=== PATIENT | male | born 1940 | race Two or more races ===

== ENCOUNTER 2021-06-27 16:45 | Inpatient (IN) | payer MEDICARE ==
[~2021-06-27] VITALS: Ht 165.1 cm; Wt 72.7 kg
--- NOTE | 2021-06-27 17:05 | PHYS DOC ---
General Adult EDM: Chief Complaint: HYPERTENSION HPI: HPI: Patient is an 81-year-old male who presents to the emergency department for hypertension and hypoglycemia. Per EMS, patient went to dialysis today, and he receives dialysis Thursday and Thursday. He was returning home to [facility] and had difficulty getting out of the vehicle, his blood sugar was checked at the facility and it was 37, they administered D10 and oral glucose and they rechecked his blood sugar was 107. EMS was contacted for transport. Patient's blood pressure upon ER arrival was 213/96. Patient has a history of hypertension and renal failure. He denies chest pain, abdominal pain, nausea, vomiting fevers, or shortness of breath. Review of Systems: Review of Systems: Constitutional: See HPI Respiratory: See HPI Cardiovascular: See HPI GI: See HPI Heart Score: C/O Chest Pain: No Risk Factors: Risk Factors: DM, Current or recent (<one month) smoker, HTN, HLP, family history of CAD, obesity. Risk Scores: Score 0 - 3: 2.5% MACE over next 6 weeks - Discharge Home Score 4 - 6: 20.3% MACE over next 6 weeks - Admit for Clinical Observation Score 7 - 10: 72.7% MACE over next 6 weeks - Early Invasive Strategies Allergies: Allergies: Allergies Coded Allergies Type Severity Reaction Last Updated Verified No Known Drug Allergies 06/27/21 No Physical Exam: PE: Constitutional: Well developed, well nourished, no acute distress, non-toxic appearance. [] HENT: Normocephalic, atraumatic, bilateral external ears normal, oropharynx moist, no oral exudates, nose normal. [] Eyes: PERRL, EOMI, conjunctiva normal, no discharge. [] Neck: Normal range of motion, no stridor Cardiovascular:Heart rate regular rhythm, no murmur [] Lungs & Thorax: Bilateral breath sounds clear to auscultation [] Abdomen: Bowel sounds normal, soft, no tenderness, no masses, no pulsatile masses. [] Skin: Warm, dry, no erythema, no rash, fistula noted to left forearm, thrill palpated, bruit auscultated. [] Back: Normal range of motion Extremities: No tenderness, no cyanosis, no clubbing, ROM intact, no edema. [] Neurologic: Alert and oriented X 3, normal motor function, normal sensory function, no focal deficits noted. [] Psychologic: Affect normal, judgement normal, mood normal. [] Current Patient Data: Labs: Laboratory Tests Test 06/27/21 16:57 Glucose (Fingerstick) 81 mg/dL (70-99) Laboratory Tests Test 06/27/21 16:57 06/27/21 18:05 06/27/21 18:30 06/27/21 18:45 Glucose (Fingerstick) 81 mg/dL Sodium Level 135 mmol/L Potassium Level 5.1 mmol/L Chloride Level 101 mmol/L Carbon Dioxide Level 28 mmol/L Anion Gap 6 Blood Urea Nitrogen 34 mg/dL Creatinine 3.9 mg/dL Estimated GFR (Cockcroft-Gault) 14.9 BUN/Creatinine Ratio 9 Glucose Level 87 mg/dL Calcium Level 7.8 mg/dL Total Bilirubin 0.3 mg/dL Aspartate Amino Transf (AST/SGOT) 26 U/L Alanine Aminotransferase (ALT/SGPT) 31 U/L Alkaline Phosphatase 138 U/L Total Protein 7.4 g/dL Albumin 3.2 g/dL Albumin/Globulin Ratio 0.8 SARS-CoV-2 Antigen (Rapid) Negative White Blood Count 6.0 x10^3/uL Red Blood Count 3.48 x10^6/uL Hemoglobin 11.6 g/dL Hematocrit 34.1 % Mean Corpuscular Volume 98 fL Mean Corpuscular Hemoglobin 33 pg Mean Corpuscular Hemoglobin Concent 34 g/dL Red Cell Distribution Width 14.0 % Platelet Count 140 x10^3/uL Neutrophils (%) (Auto) 82 % Lymphocytes (%) (Auto) 8 % Monocytes (%) (Auto) 8 % Eosinophils (%) (Auto) 1 % Basophils (%) (Auto) 0 % Neutrophils # (Auto) 4.9 x10^3/uL Lymphocytes # (Auto) 0.5 x10^3/uL Monocytes # (Auto) 0.5 x10^3/uL Eosinophils # (Auto) 0.1 x10^3/uL Basophils # (Auto) 0.0 x10^3/uL Troponin I High Sensitivity 19 ng/L Urine Collection Type Unknown Urine Color Yellow Urine Clarity Clear Urine pH 7.5 Urine Specific [place] 1.010 Urine Protein 100 mg/dL Urine Glucose (UA) Negative mg/dL Urine Ketones (Stick) Negative mg/dL Urine Blood Trace Urine Nitrite Negative Urine Bilirubin Negative Urine Urobilinogen Dipstick 0.2 mg/dL Urine Leukocyte Esterase Negative Urine RBC 0 /HPF Urine WBC Occ /HPF Urine Squamous Epithelial Cells Occ /LPF Urine Bacteria Few /HPF EKG: EKG: EKG performed at 1652 by ER staff shows sinus bradycardia with a rate of 55, QTC 444, no STEMI read by Dr. Winn at 1655 [] Radiology/Procedures: Radiology/Procedures: []PROCEDURE: PORTABLE CHEST 1V EXAM: CHEST 1 VIEW History: Chest pain COMPARISON: None available. TECHNIQUE: Single portable radiograph of the chest FINDINGS: The cardiac silhouette is unremarkable. Mild bibasilar lung airspace opacities likely atelectasis or infiltrates. Mild prominent bilateral interstitial lung markings likely chronic interstitial changes. IMPRESSION: Mild bibasilar lung airspace opacities likely atelectasis or infiltrates. Electronically signed by: Grant Schofield MD (06/27/2021 5:23 PM) [id number] DICTATED and SIGNED BY: GRANT SCHOFIELD MD DATE: 06/27/21 [id number] Course & Med Decision Making: Course & Med Decision Making Pertinent Labs and Imaging studies reviewed. (See chart for details) Patient presents to the emergency department today for hypotension hypoglycemia. Patient went to dialysis today. His blood sugar was 37. He was given D10 oral glucose his blood sugar recheck was 107, was 81 in ER. Work-up in the ER consisted of blood work, EKG, chest x-ray. Hypoglycemia protocol ordered patient's blood pressure remains elevated 227/99. however he is asymptomatic and has no complaints. He is BUN and creatinine were elevated which is chronic in nature due to his renal failure. Alk Phos 138. Chest x-ray shows mild bibasilar infiltrates and this will be treated with an antibiotic. CBC unremarkable. I contacted the staffing at [facility] and they reported that patient takes 10 mg of glipizide and 25 mg of metoprolol at the facility. I discussed patient's findings with him and his family member he also discussed admission and treatment plan and they are agreeable. I discussed patient's case with Dr. Cox and he agreed to admit the patient under his services for hypoglycemia. Bridge orders placed at this time 1908. Dragon Disclaimer: Leonidas Disclaimer: This electronic medical record was generated, in whole or in part, using a voice recognition dictation system. Departure Departure Impression: Primary Impression: Hypoglycemia Additional Impressions: Hypertension Qualified Codes: I10 - Essential (primary) hypertension Pneumonia Qualified Codes: J18.9 - Pneumonia, unspecified organism Disposition: HOME / SELF CARE / HOMELESS Admitting Physician: SHAN Condition: STABLE REDD HOLLIS CORRECTIONAL CAPTAIN Jun 27, 2021 17:05
--- NOTE | 2021-06-27 17:25 | RAD ---
EXAM: CHEST 1 VIEW History: Chest pain COMPARISON: None available. TECHNIQUE: Single portable radiograph of the chest FINDINGS: The cardiac silhouette is unremarkable. Mild bibasilar lung airspace opacities likely atel ectasis or infiltrates. Mild prominent bilateral interstitial lung markings likely chronic interstiti al changes. IMPRESSION: Mild bibasilar lung airspace opacities likely atelectasis or infiltrates. Electronically signed by: Grant Schofield MD (06/27/2021 5:23 PM) [id number]
--- NOTE | 2021-06-27 18:11 | EKG ---
[facility] [address] [place] [address] Test Date: 2021-06-27 Test Time: 16:52:24 Pat Name: ADRIANA LIM Department: Room: Gender: M Community Engagement Leader: : 1940 Requested By: REDD HOLLIS Order Number: [id number] Reading MD: Cholo Quintanilla MD Measurements Intervals Soldier Rate: 55 P: VA: QRS: -24 QRSD: 92 T: -12 QT: 462 QTc: 444 Interpretive Statements SR NON-SPECIFIC ST/T CHANGES Electronically Signed On 06-28-2021 13:25:35 VETERINARY TECHNICIAN by Cholo Quintanilla MD
[2021-06-27 18:27] LABS: CALCIUM 7.8 mg/dL (8.5-10.1); CREATININE 3.9 mg/dL (0.7-1.3); GFR 14.9; POTASSIUM 5.1 mmol/L (3.5-5.1)
[2021-06-27 18:33] LABS: ALBUMIN 3.2 g/dL (3.4-5.0); ALBUMIN/GLOBULIN RATIO 0.8 (1.0-1.7); TOTAL BILIRUBIN 0.3 mg/dL (0.2-1.0); TOTAL PROTEIN 7.4 g/dL (6.4-8.2)
[2021-06-27 18:38] LABS: BASO % 0 % (0-3); EOS # 0.1 x10^3/uL (0.0-0.7); EOS % 1 % (0-3); HEMATOCRIT 34.1 % (39.0-53.0); HEMOGLOBIN 11.6 g/dL (13.0-17.5); LYMPH # 0.5 x10^3/uL (1.0-4.8); LYMPH % 8 % (24-48); MEAN CORPUSCULAR HEMOGLOBIN 33 pg (25-35); MEAN CORPUSCULAR HGB CONC 34 g/dL (31-37); MEAN CORPUSCULAR VOLUME 98 fL (79-100); MONO # 0.5 x10^3/uL (0.0-1.1); MONO % 8 % (0-9); NEUT # 4.9 x10^3/uL (1.8-7.7); NEUT % 82 % (31-73); PLATELET COUNT 140 x10^3/uL (140-400); RED BLOOD COUNT 3.48 x10^6/uL (4.30-5.70)
[2021-06-27 18:54] LABS: BILIRUBIN,URINE NEGATIVE (NEG); CLARITY,URINE CLEAR; COLOR,URINE YELLOW; NITRITE,URINE NEGATIVE (NEG); PH,URINE 7.5 (<5.0-8.0); PROTEIN,URINE 100 mg/dL (NEG-TRACE); UROBILINOGEN,URINE 0.2 mg/dL (0.2 mg/dL)
[2021-06-27 18:59] LABS: BACTERIA,URINE FEW /HPF (0-FEW); RBC,URINE 0 /HPF (0-2); WBC,URINE OCC /HPF (0-4)
[2021-06-27] MEDS ORDERED: cefTRIAXone IV Push 1 GM VIAL. IVP ONE (19:15)
[2021-06-27] MEDS ORDERED: DEXTROSE 50% 25 GM / 50ML DISP.SYRIN. IV PRN (19:15)
[2021-06-27] MEDS ORDERED: POTASSIUM CL 20MEQ D5-0.45NACL 1,000 ML IV SCH (19:15)
[2021-06-27] MEDS ORDERED: AZITHRMYCN 500MG IVPB FOR OMNI 250 ML IV ONE (19:15)
--- NOTE | 2021-06-27 19:24 | PDOC1 ---
History and Physical Date of Admission Date of Admission DATE: 06/27/21 TIME: 19:23 Identification/Chief Complaint Chief Complaint Confusion Source Source: Caregiver, Chart review, Patient History of Present Illness History of Present Illness Mr Obregon is an 81yo male with PMHx HTN, ESRD on HD who comes to ED via EMS from [facility] where he was found passed out in a car. EMS noted confusion, glucose of 37 which improved to 107 after D10 and oral glucose. Blood pressure notably was 228/90. Patient is seen accompanied by his niece who notes he just move here from [place] on 06/23/2021 and has established dialysis with [facility] and completed dialysis earlier in the day prior to coming to ED. He denies chest pain, abdominal pain, nausea, vomiting fevers, or shortness of breath. No recent sick contacts, [facility] EKG sinus rate of [address] elevations or T WI QTc 444. Chest radiograph with bibasilar opacities likely atelectasis. Labs with WBC 6, Hb 11.6, platelets 140, NA 135, K5.1, BUN 34, CR 3.9, calcium 7.8, albumin 3.2 alkaline phosphatase 138 high-sensitivity troponin 19 UA with trace blood otherwise bland, rapid COVID-19 negative Historically he and his niece note he has not had a COVID-19 vaccine that they can remember. After D5 infusion patient became a little more alert but is extremely hard of hearing and has poor vision. Niece supplements most of the history Admitted for further care on d5 infusion after glucose of 81 noted. Past Medical History Cardiovascular: HTN Renal/: Chronic renal failure Past Surgical History Past Surgical History: Other (left forearm AV fistula) Family History Family History: High Cholestrol, Hypertension Social History Smoke: No ALCOHOL: none Drugs: None Current Problem List Problem List Problems Medical Problems: (1) Hypertension Status: Acute (2) Hypoglycemia Status: Acute (3) Pneumonia Status: Acute Current Medications Current Medications Current Medications Dextrose (Dextrose 50%-Water Syringe) 12.5 gm PRN Q15MIN PRN IV SEE COMMENTS; Start 06/27/21 at 19:15 Ceftriaxone Sodium (Rocephin) 1 gm 1X ONCE IVP ; Start 06/27/21 at 19:15; Stop 06/27/21 at 19:17; Status DC Azithromycin 250 ml @ 250 mls/hr 1X ONCE IV ; Start 06/27/21 at 19:15; Stop 06/27/21 at 20:14 Potassium Chloride/Dextrose/ Sod Cl 1,000 ml @ 80 mls/hr [id number] IV ; Start 06/27/21 at 19:15; Stop 06/28/21 at 07:44 Allergies Allergies: Coded Allergies: No Known Drug Allergies (Unverified , 06/27/21) ROS General: YES: Fatigue, Malaise; No: Chills, Night Sweats, Appetite, Other PSYCHOLOGICAL ROS: YES: Disorientation, Memory difficulties; No: Anxiety, Behavioral Disorder, Concentration difficultie, Decreased libido, Depression, Hallucinations, Hostility, Irritablity, Mood Swings, Obsessive thoughts, Physical abuse, Sexual abuse, Sleep disturbances, Suicidal ideation, Other Eyes: Yes Blurry vision, Yes Decreased vision; No Double vision, No Dry eyes, No Excessive tearing, No Eye Pain, No Itchy Eyes, No Loss of vision, No Photophobia, No Scotomata, No Uses contacts, No Uses glasses, No Other HEENT: YES: Hearing change; No: Heacaches, Visual Changes, Nasal congestion, Nasal discharge, Oral lesions, Sinus pain, Sore Throat, Epistaxis, Sneezing, Snoring, Tinnitus, Vertigo, Vocal changes, Other ALLERGY AND IMMUNOLOGY: No: Hives, Insect Bite Sensitivity, Itchy/Watery Eyes, Nasal Congestion, Post Nasal Drip, Seasonal Allergies, Other Hematological and Lymphatic: No: Bleeding Problems, Blood Clots, Blood T ransfusions, Brusing, Night Sweats, Pallor, Swollen Lymph Nodes, Other ENDOCRINE: No: Breast Changes, Galactorrhea, Hair Pattern Changes, Hot Flashes, Malaise/lethargy, Mood Swings, Palpitations, Polydipsia/polyuria, Skin Changes, Temperature Intolerance, Unexpected Weight Changes, Other Breast: No New/Changing Breast Lumps, No Nipple changes, No Nipple discharge, No Other Respiratory: No: Cough, Hemoptysis, Orthopnea, Pleuritic Pain, Shortness of breath, SOB with excertion, Sputum Changes, Stridor, Tachypnea, Wheezing, Other Cardiovascular: No Chest Pain, No Palpitations, No Orthopnea, No Paroxysmal Noc. Dyspnea, No Edema, No Lt Headedness, No Other Gastrointestinal: No Nausea, No Vomiting, No Abdominal Pain, No Diarrhea, No Constipation, No Melena, No Hematochezia, No Other Genitourinary: No Dysuria, No Frequency, No Incontinence, No Hematuria, No Retention, No Discharge, No Urgency, No Pain, No Flank Pain, No Other, No , No , No , No , No , No , No Musculoskeletal: No Gait Disturbance, No Joint Pain, No Joint Stiffness, No Joint Swelling, No Muscle Pain, No Muscular Weakness, No Pain In:, No Swelling In:, No Other Neurological: Yes Behavorial Changes, Yes Confusion; No Bowel/Bladder ControlChng, No Dizziness, No Gait Disturbance, No Headaches, No Impaired Coord/balance, No Memory Loss, No Numbness/Tingling, No Seizures, No Speech Problems, No Tremors, No Visual Changes, No Weakness, No Other Skin: No Dry Skin, No Eczema, No Hair Changes, No Lumps, No Mole Changes, No Mottling, No Nail Changes, No Pruritus, No Rash, No Skin Lesion Changes, No Other, No Acne Physical Exam General: Alert, Cooperative, mild distress HEENT: Atraumatic, PERRLA, EOMI, Mucous membr. moist/pink Lungs: Clear to auscultation, Normal air movement Heart: S1S2, RRR, no thrills, no rubs, no gallops, no murmurs Abdomen: Normal bowel sounds, Soft, No tenderness, No hepatosplenomegaly, No masses Extremities: No clubbing, No cyanosis, No edema, Normal pulses, No tenderness/swelling Skin: No rashes, No breakdown, Other (LUE fistula with good bruit in forearm) Neuro: Normal speech, Strength at 5/5 X4 ext, Normal tone, Sensation intact, Cranial nerves 3-12 NL, Reflexes 2+ Psych/Mental Status: Other (Confused) Vitals Vitals Vital Signs Date Time Temp Pulse Resp B/P (MAP) Pulse Ox O2 Delivery O2 Flow Rate FiO2 06/27/21 16:45 96.6 55 20 213/96 (135) 97 Room Air 96.6 Labs Labs Laboratory Tests Test 06/27/21 16:57 06/27/21 18:05 06/27/21 18:30 06/27/21 18:45 Glucose (Fingerstick) 81 mg/dL (70-99) Sodium Level 135 mmol/L (136-145) Potassium Level 5.1 mmol/L (3.5-5.1) Chloride Level 101 mmol/L (98-107) Carbon Dioxide Level 28 mmol/L (21-32) Anion Gap 6 (6-14) Blood Urea Nitrogen 34 mg/dL (8-26) Creatinine 3.9 mg/dL (0.7-1.3) Estimated GFR (Cockcroft-Gault) 14.9 BUN/Creatinine Ratio 9 (6-20) Glucose Level 87 mg/dL (70-99) Calcium Level 7.8 mg/dL (8.5-10.1) Total Bilirubin 0.3 mg/dL (0.2-1.0) Aspartate Amino Transf (AST/SGOT) 26 U/L (15-37) Alanine Aminotransferase (ALT/SGPT) 31 U/L (16-63) Alkaline Phosphatase 138 U/L (46-116) Total Protein 7.4 g/dL (6.4-8.2) Albumin 3.2 g/dL (3.4-5.0) Albumin/Globulin Ratio 0.8 (1.0-1.7) SARS-CoV-2 Antigen (Rapid) Negative (NEGATIVE) White Blood Count 6.0 x10^3/uL (4.0-11.0) Red Blood Count 3.48 x10^6/uL (4.30-5.70) Hemoglobin 11.6 g/dL (13.0-17.5) Hematocrit 34.1 % (39.0-53.0) Mean Corpuscular Volume 98 fL (79-100) Mean Corpuscular Hemoglobin 33 pg (25-35) Mean Corpuscular Hemoglobin Concent 34 g/dL (31-37) Red Cell Distribution Width 14.0 % (11.5-14.5) Platelet Count 140 x10^3/uL (140-400) Neutrophils (%) (Auto) 82 % (31-73) Lymphocytes (%) (Auto) 8 % (24-48) Monocytes (%) (Auto) 8 % (0-9) Eosinophils (%) (Auto) 1 % (0-3) Basophils (%) (Auto) 0 % (0-3) Neutrophils # (Auto) 4.9 x10^3/uL (1.8-7.7) Lymphocytes # (Auto) 0.5 x10^3/uL (1.0-4.8) Monocytes # (Auto) 0.5 x10^3/uL (0.0-1.1) Eosinophils # (Auto) 0.1 x10^3/uL (0.0-0.7) Basophils # (Auto) 0.0 x10^3/uL (0.0-0.2) Troponin I High Sensitivity 19 ng/L (4-75) Urine Collection Type Unknown Urine Color Yellow Urine Clarity Clear Urine pH 7.5 (<5.0-8.0) Urine Specific [place] 1.010 (1.000-1.030) Urine Protein 100 mg/dL (NEG-TRACE) Urine Glucose (UA) Negative mg/dL (NEG) Urine Ketones (Stick) Negative mg/dL (NEG) Urine Blood Trace (NEG) Urine Nitrite Negative (NEG) Urine Bilirubin Negative (NEG) Urine Urobilinogen Dipstick 0.2 mg/dL (0.2 mg/dL) Urine Leukocyte Esterase Negative (NEG) Urine RBC 0 /HPF (0-2) Urine WBC Occ /HPF (0-4) Urine Squamous Epithelial Cells Occ /LPF Urine Bacteria Few /HPF (0-FEW) Laboratory Tests Test 06/27/21 16:57 06/27/21 18:05 06/27/21 18:30 06/27/21 18:45 Glucose (Fingerstick) 81 mg/dL (70-99) Sodium Level 135 mmol/L (136-145) Potassium Level 5.1 mmol/L (3.5-5.1) Chloride Level 101 mmol/L (98-107) Carbon Dioxide Level 28 mmol/L (21-32) Anion Gap 6 (6-14) Blood Urea Nitrogen 34 mg/dL (8-26) Creatinine 3.9 mg/dL (0.7-1.3) Estimated GFR (Cockcroft-Gault) 14.9 BUN/Creatinine Ratio 9 (6-20) Glucose Level 87 mg/dL (70-99) Calcium Level 7.8 mg/dL (8.5-10.1) Total Bilirubin 0.3 mg/dL (0.2-1.0) Aspartate Amino Transf (AST/SGOT) 26 U/L (15-37) Alanine Aminotransferase (ALT/SGPT) 31 U/L (16-63) Alkaline Phosphatase 138 U/L (46-116) Total Protein 7.4 g/dL (6.4-8.2) Albumin 3.2 g/dL (3.4-5.0) Albumin/Globulin Ratio 0.8 (1.0-1.7) SARS-CoV-2 Antigen (Rapid) Negative (NEGATIVE) White Blood Count 6.0 x10^3/uL (4.0-11.0) Red Blood Count 3.48 x10^6/uL (4.30-5.70) Hemoglobin 11.6 g/dL (13.0-17.5) Hematocrit 34.1 % (39.0-53.0) Mean Corpuscular Volume 98 fL (79-100) Mean Corpuscular Hemoglobin 33 pg (25-35) Mean Corpuscular Hemoglobin Concent 34 g/dL (31-37) Red Cell Distribution Width 14.0 % (11.5-14.5) Platelet Count 140 x10^3/uL (140-400) Neutrophils (%) (Auto) 82 % (31-73) Lymphocytes (%) (Auto) 8 % (24-48) Monocytes (%) (Auto) 8 % (0-9) Eosinophils (%) (Auto) 1 % (0-3) Basophils (%) (Auto) 0 % (0-3) Neutrophils # (Auto) 4.9 x10^3/uL (1.8-7.7) Lymphocytes # (Auto) 0.5 x10^3/uL (1.0-4.8) Monocytes # (Auto) 0.5 x10^3/uL (0.0-1.1) Eosinophils # (Auto) 0.1 x10^3/uL (0.0-0.7) Basophils # (Auto) 0.0 x10^3/uL (0.0-0.2) Troponin I High Sensitivity 19 ng/L (4-75) Urine Collection Type Unknown Urine Color Yellow Urine Clarity Clear Urine pH 7.5 (<5.0-8.0) Urine Specific [place] 1.010 (1.000-1.030) Urine Protein 100 mg/dL (NEG-TRACE) Urine Glucose (UA) Negative mg/dL (NEG) Urine Ketones (Stick) Negative mg/dL (NEG) Urine Blood Trace (NEG) Urine Nitrite Negative (NEG) Urine Bilirubin Negative (NEG) Urine Urobilinogen Dipstick 0.2 mg/dL (0.2 mg/dL) Urine Leukocyte Esterase Negative (NEG) Urine RBC 0 /HPF (0-2) Urine WBC Occ /HPF (0-4) Urine Squamous Epithelial Cells Occ /LPF Urine Bacteria Few /HPF (0-FEW) Images Images Chest radiograph: The cardiac silhouette is unremarkable. Mild bibasilar lung airspace opacities likely atelectasis or infiltrates. Mild prominent bilateral interstitial lung markings likely chronic interstitial changes. IMPRESSION: Mild bibasilar lung airspace opacities likely atelectasis or infiltrates. VTE Prophylaxis Ordered VTE Prophylaxis Devices: No VTE Pharmacological Prophylaxi: Yes Assessment/Plan Assessment/Plan A/P: Acute encephalopathy - metabolic due to hypoglycemia. No focal neurologic deficits. Will monitor mental status as it continues to improve Hypoglycemia - patient and niece do not note h/o diabetes. WIll maintain D5 infusion, check glucose q4hrs HTN urgency - IV hydralazine ordered. 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
[2021-06-27] MEDS: IV DEXTROSE 5 %-0.45 % NACL 1,000 ML IV ONE ×2 (20:15→23:17)
[2021-06-27] MEDS ORDERED: ONDANSETRON PF 4 MG/2 ML VIAL. IVP PRN (22:15)
[2021-06-27] MEDS ORDERED: traMADol 50 MG TABLET PO PRN (22:15)
[2021-06-27] MEDS ORDERED: NITROGLYCERIN SUBLINGUAL 0.4 MG BOTTLE OF 25. SL PRN (22:15)
[2021-06-27] MEDS ORDERED: ACETAMINOPHEN 325 MG TABLET. PO PRN (22:15)
[2021-06-27] MEDS: fentaNYL PF VIAL 100 MCG/2 ML VIAL IVP PRN (22:56)
[2021-06-27] MEDS: hydrALAZINE 20 MG/ML VIAL. IVP PRN (22:57)
[2021-06-27 23:00] VITALS: BP 133/116
[2021-06-28] MEDS ORDERED: CYCLOBENZAPRINE 10 MG TABLET. PO PRN (00:30)
[2021-06-28] MEDS ORDERED: IV DEXTROSE 10% 500 ML IV ONE (00:30)
[2021-06-28] MEDS ORDERED: fentaNYL PF VIAL 100 MCG/2 ML VIAL IM ONE (00:30)
[2021-06-28] MEDS: hydrALAZINE 20 MG/ML VIAL. IVP PRN ×3 (03:22→22:00)
[2021-06-28] MEDS: fentaNYL PF VIAL 100 MCG/2 ML VIAL IVP PRN (03:22)
[2021-06-28 03:29] VITALS: BP 187/75
[2021-06-28 04:31] LABS: BASO % 0 % (0-3); EOS # 0.1 x10^3/uL (0.0-0.7); EOS % 2 % (0-3); HEMATOCRIT 33.6 % (39.0-53.0); HEMOGLOBIN 11.5 g/dL (13.0-17.5); LYMPH # 0.8 x10^3/uL (1.0-4.8); LYMPH % 18 % (24-48); MEAN CORPUSCULAR HEMOGLOBIN 34 pg (25-35); MEAN CORPUSCULAR HGB CONC 34 g/dL (31-37); MEAN CORPUSCULAR VOLUME 98 fL (79-100); MONO # 0.4 x10^3/uL (0.0-1.1); MONO % 10 % (0-9); NEUT # 3.3 x10^3/uL (1.8-7.7); NEUT % 71 % (31-73); PLATELET COUNT 141 x10^3/uL (140-400); RED BLOOD COUNT 3.43 x10^6/uL (4.30-5.70); WHITE BLOOD COUNT 4.7 x10^3/uL (4.0-11.0)
[2021-06-28 04:57] LABS: ALBUMIN 2.8 g/dL (3.4-5.0); ALBUMIN/GLOBULIN RATIO 0.8 (1.0-1.7); CALCIUM 7.4 mg/dL (8.5-10.1); CREATININE 4.1 mg/dL (0.7-1.3); GFR 14.1; POTASSIUM 4.7 mmol/L (3.5-5.1); TOTAL BILIRUBIN 0.3 mg/dL (0.2-1.0); TOTAL PROTEIN 6.4 g/dL (6.4-8.2)
[2021-06-28] MEDS: HEPARIN for SUB-Q USE 5,000 UNIT/ML VIAL. SQ SCH ×3 (05:14→22:07)
[2021-06-28 07:00] VITALS: BP 172/74
[2021-06-28] MEDS ORDERED: TRAM50TA PO (07:09)
[2021-06-28] MEDS ORDERED: METO25TA4 PO (07:09)
[2021-06-28] MEDS ORDERED: ZOLP5TAB5 PO (07:09)
[2021-06-28] MEDS ORDERED: GLIP10TA13 PO (07:09)
[2021-06-28] MEDS ORDERED: CALC667T4 PO (07:09)
[2021-06-28] MEDS ORDERED: LIDO30CR2 TP (07:12)
[2021-06-28 11:00] VITALS: BP 154/68
--- NOTE | 2021-06-28 11:31 | PDOC2 ---
CONSULT Date of Consult Date of Consult DATE: 06/28/21 TIME: 11:26 Reason for Consult Reason for Consult: ESRD Referring Physician Referring Physician: ADIS Identification/Chief Complaint Chief Complaint CONFUSION Source Source: Chart review History of Present Illness Reason for Visit: THIS IS AN 81 YR OLD ESRD PT WITH OP HD ON TTS. HE HAS A LEFT FA RC AVF FOR HIS DIALYSIS. ESRD IS DUE TO DM II. ADMITTED WITH CONFUSION AND LOW BG BELOW REVIEWED Mr Obregon is an 81yo male with PMHx HTN, ESRD on HD who comes to ED via EMS from [facility] where he was found passed out in a car. EMS noted confusion, glucose of 37 which improved to 107 after D10 and oral glucose. Blood pressure notably was 228/90. Patient is seen accompanied by his niece who notes he just move here from [place] on 06/23/2021 and has established dialysis with [facility] and completed dialysis earlier in the day prior to coming to ED. He denies chest pain, abdominal pain, nausea, vomiting fevers, or shortness of breath. No recent sick contacts, no pets at his [facility] living facility EKG sinus rate of [address] elevations or T WI QTc 444. Chest radiograph with bibasilar opacities likely atelectasis. Labs with WBC 6, Hb 11.6, platelets 140, NA 135, K5.1, BUN 34, CR 3.9, calcium 7.8, albumin 3.2 alkaline phosphatase 138 high-sensitivity troponin 19 UA with trace blood otherwise bland, rapid COVID-19 negative Historically he and his niece note he has not had a COVID-19 vaccine that they can remember. After D5 infusion patient became a little more alert but is extremely hard of hearing and has poor vision. Niece supplements most of the history Admitted for further care on d5 infusion after glucose of 81 noted. Past Medical History Cardiovascular: HTN GI: Constipation Heme/Onc: Anemia NOS Renal/: Chronic renal failure Endocrine: Hyperparathyroidism Past Surgical History Past Surgical History LEFT FA RC AVF Past Surgical History: Other (left forearm AV fistula) Family History Family History: High Cholestrol, Hypertension Social History No ALCOHOL: none Drugs: None Lives: with Family Current Problem List Problem List Problems Medical Problems: (1) Hypertension Status: Acute (2) Hypoglycemia Status: Acute (3) Pneumonia Status: Acute Current Medications Current Medications Current Medications Dextrose (Dextrose 50%-Water Syringe) 12.5 gm PRN Q15MIN PRN IV SEE COMMENTS Last administered on 06/27/21at 22:57; Start 06/27/21 at 19:15 Ceftriaxone Sodium (Rocephin) 1 gm 1X ONCE IVP Last administered on 06/27/21at 21:22; Start 06/27/21 at 19:15; Stop 06/27/21 at 19:17; Status DC Azithromycin 250 ml @ 250 mls/hr 1X ONCE IV Last administered on 06/27/21at 21:22; Start 06/27/21 at 19:15; Stop 06/27/21 at 20:14; Status DC Potassium Chloride/Dextrose/ Sod Cl 1,000 ml @ 80 mls/hr [id number] IV ; Start 06/27/21 at 19:15; Stop 06/27/21 at 20:02; Status DC Dextrose/Sodium Chloride 1,000 ml @ 75 mls/hr 1X ONCE IV Last administered on 06/27/21at 23:17; Start 06/27/21 at 20:15; Stop 06/28/21 at 09:34; Status DC Ondansetron HCl (Zofran) 4 mg PRN Q4HRS PRN IVP NAUSEA/VOMITING; Start 06/27/21 at 22:15 Acetaminophen (Tylenol) 650 mg PRN Q6HRS PRN PO MILD PAIN / TEMP > 100.3'F; Start 06/27/21 at 22:15 Nitroglycerin (Nitrostat) 0.4 mg PRN Q5MIN PRN SL CHEST PAIN; Start 06/27/21 at 22:15 Tramadol HCl (Ultram) 50 mg PRN Q6HRS PRN PO PAIN MOD/SEV Last administered on 06/27/21at 23:22; Start 06/27/21 at 22:15 Fentanyl Citrate (Fentanyl 2ml Vial) 25 mcg PRN Q3HRS PRN IVP SEVERE PAIN 7-10 Last administered on 06/28/21at 03:22; Start 06/27/21 at 22:15 Heparin Sodium (Porcine) (Heparin Sodium) 5,000 unit Q8HRS SQ Last administered on 06/28/21at 05:14; Start 06/28/21 at 06:00 Hydralazine HCl (Apresoline Inj) 10 mg PRN Q4HRS PRN IVP ELEVATED BP, SEE COMMENTS Last administered on 06/28/21at 03:22; Start 06/27/21 at 22:15 Cyclobenzaprine HCl (Flexeril) 10 mg PRN TID PRN PO MUSCLE SPASMS Last administered on 06/28/21at 00:41; Start 06/28/21 at 00:30 Fentanyl Citrate (Fentanyl 2ml Vial) 50 mcg 1X ONCE IM Last administered on 06/28/21at 00:41; Start 06/28/21 at 00:30; Stop 06/28/21 at 00:31; Status DC Dextrose 500 ml @ 100 mls/hr 1X ONCE IV Last administered on 06/28/21at 00:30; Start 06/28/21 at 00:30; Stop 06/28/21 at 05:29; Status DC Olanzapine (ZyPREXA ZYDIS) 5 mg PRN BID PRN PO ANXIETY / AGITATION Last administered on 06/28/21at 00:41; Start 06/28/21 at 00:30 Active Scripts Active Reported Lidocaine-Prilocaine Cream (Lidocaine/Prilocaine) 30 Gm Cream..g. 1 Tatiana TP UD small amount to affected area for dialysis fistula pain management Tramadol Hcl 50 Mg Tablet 50 Mg PO BID PRN Zolpidem Tartrate 5 Mg Tablet 5 Mg PO PRN QHS PRN Metoprolol Tartrate 25 Mg Tablet 1 Tab PO BID Glipizide 10 Mg Tablet 10 Mg PO DAILY Calcium Acetate 667 Mg Tablet 2 Tab PO TID 30 Days Allergies Allergies: Coded Allergies: No Known Drug Allergies (Unverified , 06/27/21) ROS Review of System UNABLE TO OBTAIN Physical Exam General: Alert, Cooperative, No acute distress HEENT: Atraumatic Lungs: Clear to auscultation, Normal air movement Heart: Regular rate Abdomen: Normal bowel sounds, Soft, No tenderness Skin: No breakdown Neuro: Normal speech Psych/Mental Status: Mental status NL MUSCULOSKELETAL: No joint tenderness, Other (LEFT FA AVF WITH GOOD THRILL AND BRUIT) Vitals VITALS Vital Signs Date Time Temp Pulse Resp B/P (MAP) Pulse Ox O2 Delivery O2 Flow Rate FiO2 06/28/21 07:00 98.2 65 18 172/74 (106) 97 Room Air 98.2 Labs Labs Laboratory Tests Test 06/27/21 16:57 06/27/21 18:05 06/27/21 18:30 06/27/21 18:45 Glucose (Fingerstick) 81 mg/dL (70-99) Sodium Level 135 mmol/L (136-145) Potassium Level 5.1 mmol/L (3.5-5.1) Chloride Level 101 mmol/L (98-107) Carbon Dioxide Level 28 mmol/L (21-32) Anion Gap 6 (6-14) Blood Urea Nitrogen 34 mg/dL (8-26) Creatinine 3.9 mg/dL (0.7-1.3) Estimated GFR (Cockcroft-Gault) 14.9 BUN/Creatinine Ratio 9 (6-20) Glucose Level 87 mg/dL (70-99) Calcium Level 7.8 mg/dL (8.5-10.1) Total Bilirubin 0.3 mg/dL (0.2-1.0) Aspartate Amino Transf (AST/SGOT) 26 U/L (15-37) Alanine Aminotransferase (ALT/SGPT) 31 U/L (16-63) Alkaline Phosphatase 138 U/L (46-116) Total Protein 7.4 g/dL (6.4-8.2) Albumin 3.2 g/dL (3.4-5.0) Albumin/Globulin Ratio 0.8 (1.0-1.7) SARS-CoV-2 RNA (MP) Negative (Negative) SARS-CoV-2 Antigen (Rapid) Negative (NEGATIVE) White Blood Count 6.0 x10^3/uL (4.0-11.0) Red Blood Count 3.48 x10^6/uL (4.30-5.70) Hemoglobin 11.6 g/dL (13.0-17.5) Hematocrit 34.1 % (39.0-53.0) Mean Corpuscular Volume 98 fL (79-100) Mean Corpuscular Hemoglobin 33 pg (25-35) Mean Corpuscular Hemoglobin Concent 34 g/dL (31-37) Red Cell Distribution Width 14.0 % (11.5-14.5) Platelet Count 140 x10^3/uL (140-400) Neutrophils (%) (Auto) 82 % (31-73) Lymphocytes (%) (Auto) 8 % (24-48) Monocytes (%) (Auto) 8 % (0-9) Eosinophils (%) (Auto) 1 % (0-3) Basophils (%) (Auto) 0 % (0-3) Neutrophils # (Auto) 4.9 x10^3/uL (1.8-7.7) Lymphocytes # (Auto) 0.5 x10^3/uL (1.0-4.8) Monocytes # (Auto) 0.5 x10^3/uL (0.0-1.1) Eosinophils # (Auto) 0.1 x10^3/uL (0.0-0.7) Basophils # (Auto) 0.0 x10^3/uL (0.0-0.2) Troponin I High Sensitivity 19 ng/L (4-75) Urine Collection Type Unknown Urine Color Yellow Urine Clarity Clear Urine pH 7.5 (<5.0-8.0) Urine Specific [place] 1.010 (1.000-1.030) Urine Protein 100 mg/dL (NEG-TRACE) Urine Glucose (UA) Negative mg/dL (NEG) Urine Ketones (Stick) Negative mg/dL (NEG) Urine Blood Trace (NEG) Urine Nitrite Negative (NEG) Urine Bilirubin Negative (NEG) Urine Urobilinogen Dipstick 0.2 mg/dL (0.2 mg/dL) Urine Leukocyte Esterase Negative (NEG) Urine RBC 0 /HPF (0-2) Urine WBC Occ /HPF (0-4) Urine Squamous Epithelial Cells Occ /LPF Urine Bacteria Few /HPF (0-FEW) Test 06/27/21 22:41 06/27/21 22:55 06/28/21 03:15 06/28/21 04:00 Glucose (Fingerstick) 36 mg/dL (70-99) 171 mg/dL (70-99) 135 mg/dL (70-99) White Blood Count 4.7 x10^3/uL (4.0-11.0) Red Blood Count 3.43 x10^6/uL (4.30-5.70) Hemoglobin 11.5 g/dL (13.0-17.5) Hematocrit 33.6 % (39.0-53.0) Mean Corpuscular Volume 98 fL (79-100) Mean Corpuscular Hemoglobin 34 pg (25-35) Mean Corpuscular Hemoglobin Concent 34 g/dL (31-37) Red Cell Distribution Width 14.0 % (11.5-14.5) Platelet Count 141 x10^3/uL (140-400) Neutrophils (%) (Auto) 71 % (31-73) Lymphocytes (%) (Auto) 18 % (24-48) Monocytes (%) (Auto) 10 % (0-9) Eosinophils (%) (Auto) 2 % (0-3) Basophils (%) (Auto) 0 % (0-3) Neutrophils # (Auto) 3.3 x10^3/uL (1.8-7.7) Lymphocytes # (Auto) 0.8 x10^3/uL (1.0-4.8) Monocytes # (Auto) 0.4 x10^3/uL (0.0-1.1) Eosinophils # (Auto) 0.1 x10^3/uL (0.0-0.7) Basophils # (Auto) 0.0 x10^3/uL (0.0-0.2) Sodium Level 136 mmol/L (136-145) Potassium Level 4.7 mmol/L (3.5-5.1) Chloride Level 102 mmol/L (98-107) Carbon Dioxide Level 26 mmol/L (21-32) Anion Gap 8 (6-14) Blood Urea Nitrogen 38 mg/dL (8-26) Creatinine 4.1 mg/dL (0.7-1.3) Estimated GFR (Cockcroft-Gault) 14.1 BUN/Creatinine Ratio 9 (6-20) Glucose Level 131 mg/dL (70-99) Calcium Level 7.4 mg/dL (8.5-10.1) Total Bilirubin 0.3 mg/dL (0.2-1.0) Aspartate Amino Transf (AST/SGOT) 22 U/L (15-37) Alanine Aminotransferase (ALT/SGPT) 24 U/L (16-63) Alkaline Phosphatase 105 U/L (46-116) Troponin I High Sensitivity 21 ng/L (4-75) Total Protein 6.4 g/dL (6.4-8.2) Albumin 2.8 g/dL (3.4-5.0) Albumin/Globulin Ratio 0.8 (1.0-1.7) Thyroid Stimulating Hormone (TSH) 4.033 uIU/mL (0.358-3.74) Test 06/28/21 08:05 Glucose (Fingerstick) 55 mg/dL (70-99) Laboratory Tests Test 06/27/21 16:57 06/27/21 18:05 06/27/21 18:30 06/27/21 18:45 Glucose (Fingerstick) 81 mg/dL (70-99) Sodium Level 135 mmol/L (136-145) Potassium Level 5.1 mmol/L (3.5-5.1) Chloride Level 101 mmol/L (98-107) Carbon Dioxide Level 28 mmol/L (21-32) Anion Gap 6 (6-14) Blood Urea Nitrogen 34 mg/dL (8-26) Creatinine 3.9 mg/dL (0.7-1.3) Estimated GFR (Cockcroft-Gault) 14.9 BUN/Creatinine Ratio 9 (6-20) Glucose Level 87 mg/dL (70-99) Calcium Level 7.8 mg/dL (8.5-10.1) Total Bilirubin 0.3 mg/dL (0.2-1.0) Aspartate Amino Transf (AST/SGOT) 26 U/L (15-37) Alanine Aminotransferase (ALT/SGPT) 31 U/L (16-63) Alkaline Phosphatase 138 U/L (46-116) Total Protein 7.4 g/dL (6.4-8.2) Albumin 3.2 g/dL (3.4-5.0) Albumin/Globulin Ratio 0.8 (1.0-1.7) SARS-CoV-2 RNA (MP) Negative (Negative) SARS-CoV-2 Antigen (Rapid) Negative (NEGATIVE) White Blood Count 6.0 x10^3/uL (4.0-11.0) Red Blood Count 3.48 x10^6/uL (4.30-5.70) Hemoglobin 11.6 g/dL (13.0-17.5) Hematocrit 34.1 % (39.0-53.0) Mean Corpuscular Volume 98 fL (79-100) Mean Corpuscular Hemoglobin 33 pg (25-35) Mean Corpuscular Hemoglobin Concent 34 g/dL (31-37) Red Cell Distribution Width 14.0 % (11.5-14.5) Platelet Count 140 x10^3/uL (140-400) Neutrophils (%) (Auto) 82 % (31-73) Lymphocytes (%) (Auto) 8 % (24-48) Monocytes (%) (Auto) 8 % (0-9) Eosinophils (%) (Auto) 1 % (0-3) Basophils (%) (Auto) 0 % (0-3) Neutrophils # (Auto) 4.9 x10^3/uL (1.8-7.7) Lymphocytes # (Auto) 0.5 x10^3/uL (1.0-4.8) Monocytes # (Auto) 0.5 x10^3/uL (0.0-1.1) Eosinophils # (Auto) 0.1 x10^3/uL (0.0-0.7) Basophils # (Auto) 0.0 x10^3/uL (0.0-0.2) Troponin I High Sensitivity 19 ng/L (4-75) Urine Collection Type Unknown Urine Color Yellow Urine Clarity Clear Urine pH 7.5 (<5.0-8.0) Urine Specific [place] 1.010 (1.000-1.030) Urine Protein 100 mg/dL (NEG-TRACE) Urine Glucose (UA) Negative mg/dL (NEG) Urine Ketones (Stick) Negative mg/dL (NEG) Urine Blood Trace (NEG) Urine Nitrite Negative (NEG) Urine Bilirubin Negative (NEG) Urine Urobilinogen Dipstick 0.2 mg/dL (0.2 mg/dL) Urine Leukocyte Esterase Negative (NEG) Urine RBC 0 /HPF (0-2) Urine WBC Occ /HPF (0-4) Urine Squamous Epithelial Cells Occ /LPF Urine Bacteria Few /HPF (0-FEW) Test 06/27/21 22:41 06/27/21 22:55 06/28/21 03:15 06/28/21 04:00 Glucose (Fingerstick) 36 mg/dL (70-99) 171 mg/dL (70-99) 135 mg/dL (70-99) White Blood Count 4.7 x10^3/uL (4.0-11.0) Red Blood Count 3.43 x10^6/uL (4.30-5.70) Hemoglobin 11.5 g/dL (13.0-17.5) Hematocrit 33.6 % (39.0-53.0) Mean Corpuscular Volume 98 fL (79-100) Mean Corpuscular Hemoglobin 34 pg (25-35) Mean Corpuscular Hemoglobin Concent 34 g/dL (31-37) Red Cell Distribution Width 14.0 % (11.5-14.5) Platelet Count 141 x10^3/uL (140-400) Neutrophils (%) (Auto) 71 % (31-73) Lymphocytes (%) (Auto) 18 % (24-48) Monocytes (%) (Auto) 10 % (0-9) Eosinophils (%) (Auto) 2 % (0-3) Basophils (%) (Auto) 0 % (0-3) Neutrophils # (Auto) 3.3 x10^3/uL (1.8-7.7) Lymphocytes # (Auto) 0.8 x10^3/uL (1.0-4.8) Monocytes # (Auto) 0.4 x10^3/uL (0.0-1.1) Eosinophils # (Auto) 0.1 x10^3/uL (0.0-0.7) Basophils # (Auto) 0.0 x10^3/uL (0.0-0.2) Sodium Level 136 mmol/L (136-145) Potassium Level 4.7 mmol/L (3.5-5.1) Chloride Level 102 mmol/L (98-107) Carbon Dioxide Level 26 mmol/L (21-32) Anion Gap 8 (6-14) Blood Urea Nitrogen 38 mg/dL (8-26) Creatinine 4.1 mg/dL (0.7-1.3) Estimated GFR (Cockcroft-Gault) 14.1 BUN/Creatinine Ratio 9 (6-20) Glucose Level 131 mg/dL (70-99) Calcium Level 7.4 mg/dL (8.5-10.1) Total Bilirubin 0.3 mg/dL (0.2-1.0) Aspartate Amino Transf (AST/SGOT) 22 U/L (15-37) Alanine Aminotransferase (ALT/SGPT) 24 U/L (16-63) Alkaline Phosphatase 105 U/L (46-116) Troponin I High Sensitivity 21 ng/L (4-75) Total Protein 6.4 g/dL (6.4-8.2) Albumin 2.8 g/dL (3.4-5.0) Albumin/Globulin Ratio 0.8 (1.0-1.7) Thyroid Stimulating Hormone (TSH) 4.033 uIU/mL (0.358-3.74) Test 06/28/21 08:05 Glucose (Fingerstick) 55 mg/dL (70-99) Assessment/Plan Assessment/Plan IMP [id number] FA RC AVF FOR ACCESS ACUTE ENCEPHALOPATHY HYPOGLYCEMIA POORLY CONTROLLED HTN DM II ANEMIA ACUTE MET ENCEPHALOPATHY PLAN CORRECT BG HD TTS ROULA NEEDED WILL FOLLOW COLLEEN MENON MD Jun 28, 2021 11:30
--- NOTE | 2021-06-28 11:45 | NUR ---
This morning patient blood sugar was 55. 2 orange juices were given to patient and since patient is also eating breakfast patient was continued to be monitor. Patient blood sugar at 11:00 am came back to 137.
--- NOTE | 2021-06-28 14:10 | NUR ---
SW following. Discussed with RN, pt from [facility], room air, ada diet, rapid COVID-19 negative. PT/OT ordered. Pt does dialysis T, Th, Sa. SW will continue to follow.
[2021-06-28 15:00] VITALS: BP 191/83
[2021-06-28] MEDS ORDERED: DEXTROSE 50% 25 GM / 50ML DISP.SYRIN. IV PRN ×2 (17:45)
[2021-06-28] MEDS: INSULIN LISPRO 300 UNITS/3 ML VIAL. SQ SCH (18:22)
[2021-06-28 19:00] VITALS: BP 176/77
--- NOTE | 2021-06-28 20:07 | PDOC ---
PROGRESS NOTES Date of Service: DATE: 06/28/21 TIME: 20:05 Chief Complaint Chief Complaint Acute encephalopathy - metabolic due to hypoglycemia. No focal neurologic deficits. Will monitor mental status as it continues to improve Hypoglycemia - patient and niece do not note h/o diabetes. WIll maintain D5 infusion, check glucose q4hrs HTN urgency - IV hydralazine ordered. 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 EMS noted confusion, glucose of 37 which improved to 107 after D10 and oral glucose. Blood pressure notably was 228/90. Patient is seen accompanied by his niece who notes he just move here from [place] on 06/23/2021 and has established dialysis with [facility] and completed dialysis earlier in the day prior to coming to ED. He denies chest pain, abdominal pain, nausea, vomiting fevers, or shortness of breath. No recent sick contacts, [facility] EKG sinus rate of [address] elevations or T WI QTc 444. Chest radiograph with bibasilar opacities likely atelectasis. Labs with WBC 6, Hb 11.6, platelets 140, NA 135, K5.1, BUN 34, CR 3.9, calcium 7.8, albumin 3.2 alkaline phosphatase 138 high-sensitivity troponin 19 UA with trace blood otherwise bland, rapid COVID-19 negative Historically he and his niece note he has not had a COVID-19 vaccine that they can remember. After D5 infusion patient became a little more alert but is extremely hard of hearing and has poor vision. Niece supplements most of the history Admitted for further care on d5 infusion after glucose of 81 noted. 06/28/2021 No acute events reported overnight, case discussed with nursing staff patient in no acute distress no complaints during my visit All concerns addressed to the best of my ability Vitals Vitals Vital Signs Date Time Temp Pulse Resp B/P (MAP) Pulse Ox O2 Delivery O2 Flow Rate FiO2 06/28/21 19:00 97.9 85 20 176/77 (110) 99 Room Air 97.9 Physical Exam General: Alert, Cooperative, No acute distress Heart: Regular rate Abdomen: Normal bowel sounds, Soft, No tenderness Extremities: No clubbing, No cyanosis, No edema, Normal pulses, No tendern ess/swelling Skin: No breakdown Labs LABS Laboratory Tests Test 06/27/21 22:41 06/27/21 22:55 06/28/21 03:15 06/28/21 04:00 Glucose (Fingerstick) 36 mg/dL (70-99) 171 mg/dL (70-99) 135 mg/dL (70-99) White Blood Count 4.7 x10^3/uL (4.0-11.0) Red Blood Count 3.43 x10^6/uL (4.30-5.70) Hemoglobin 11.5 g/dL (13.0-17.5) Hematocrit 33.6 % (39.0-53.0) Mean Corpuscular Volume 98 fL (79-100) Mean Corpuscular Hemoglobin 34 pg (25-35) Mean Corpuscular Hemoglobin Concent 34 g/dL (31-37) Red Cell Distribution Width 14.0 % (11.5-14.5) Platelet Count 141 x10^3/uL (140-400) Neutrophils (%) (Auto) 71 % (31-73) Lymphocytes (%) (Auto) 18 % (24-48) Monocytes (%) (Auto) 10 % (0-9) Eosinophils (%) (Auto) 2 % (0-3) Basophils (%) (Auto) 0 % (0-3) Neutrophils # (Auto) 3.3 x10^3/uL (1.8-7.7) Lymphocytes # (Auto) 0.8 x10^3/uL (1.0-4.8) Monocytes # (Auto) 0.4 x10^3/uL (0.0-1.1) Eosinophils # (Auto) 0.1 x10^3/uL (0.0-0.7) Basophils # (Auto) 0.0 x10^3/uL (0.0-0.2) Sodium Level 136 mmol/L (136-145) Potassium Level 4.7 mmol/L (3.5-5.1) Chloride Level 102 mmol/L (98-107) Carbon Dioxide Level 26 mmol/L (21-32) Anion Gap 8 (6-14) Blood Urea Nitrogen 38 mg/dL (8-26) Creatinine 4.1 mg/dL (0.7-1.3) Estimated GFR (Cockcroft-Gault) 14.1 BUN/Creatinine Ratio 9 (6-20) Glucose Level 131 mg/dL (70-99) Calcium Level 7.4 mg/dL (8.5-10.1) Total Bilirubin 0.3 mg/dL (0.2-1.0) Aspartate Amino Transf (AST/SGOT) 22 U/L (15-37) Alanine Aminotransferase (ALT/SGPT) 24 U/L (16-63) Alkaline Phosphatase 105 U/L (46-116) Troponin I High Sensitivity 21 ng/L (4-75) Total Protein 6.4 g/dL (6.4-8.2) Albumin 2.8 g/dL (3.4-5.0) Albumin/Globulin Ratio 0.8 (1.0-1.7) Vitamin B12 Level 366 pg/mL (247-911) Thyroid Stimulating Hormone (TSH) 4.033 uIU/mL (0.358-3.74) Test 06/28/21 08:05 06/28/21 11:36 06/28/21 16:41 Glucose (Fingerstick) 55 mg/dL (70-99) 137 mg/dL (70-99) 216 mg/dL (70-99) Review of Systems Review of Systems Review of systems pertinent as per HPI otherwise 14 point review of system is negative Assessment and Plan Assessmemt and Plan Problems Medical Problems: (1) Hypertension Status: Acute (2) Hypoglycemia Status: Acute (3) Pneumonia Status: Acute Comment Review of Relevant I have reviewed the following items becky (where applicable) has been applied. Labs Laboratory Tests Test 06/27/21 16:57 06/27/21 18:05 06/27/21 18:30 06/27/21 18:45 Glucose (Fingerstick) 81 mg/dL (70-99) Sodium Level 135 mmol/L (136-145) Potassium Level 5.1 mmol/L (3.5-5.1) Chloride Level 101 mmol/L (98-107) Carbon Dioxide Level 28 mmol/L (21-32) Anion Gap 6 (6-14) Blood Urea Nitrogen 34 mg/dL (8-26) Creatinine 3.9 mg/dL (0.7-1.3) Estimated GFR (Cockcroft-Gault) 14.9 BUN/Creatinine Ratio 9 (6-20) Glucose Level 87 mg/dL (70-99) Calcium Level 7.8 mg/dL (8.5-10.1) Total Bilirubin 0.3 mg/dL (0.2-1.0) Aspartate Amino Transf (AST/SGOT) 26 U/L (15-37) Alanine Aminotransferase (ALT/SGPT) 31 U/L (16-63) Alkaline Phosphatase 138 U/L (46-116) Total Protein 7.4 g/dL (6.4-8.2) Albumin 3.2 g/dL (3.4-5.0) Albumin/Globulin Ratio 0.8 (1.0-1.7) SARS-CoV-2 RNA (MP) Negative (Negative) SARS-CoV-2 Antigen (Rapid) Negative (NEGATIVE) White Blood Count 6.0 x10^3/uL (4.0-11.0) Red Blood Count 3.48 x10^6/uL (4.30-5.70) Hemoglobin 11.6 g/dL (13.0-17.5) Hematocrit 34.1 % (39.0-53.0) Mean Corpuscular Volume 98 fL (79-100) Mean Corpuscular Hemoglobin 33 pg (25-35) Mean Corpuscular Hemoglobin Concent 34 g/dL (31-37) Red Cell Distribution Width 14.0 % (11.5-14.5) Platelet Count 140 x10^3/uL (140-400) Neutrophils (%) (Auto) 82 % (31-73) Lymphocytes (%) (Auto) 8 % (24-48) Monocytes (%) (Auto) 8 % (0-9) Eosinophils (%) (Auto) 1 % (0-3) Basophils (%) (Auto) 0 % (0-3) Neutrophils # (Auto) 4.9 x10^3/uL (1.8-7.7) Lymphocytes # (Auto) 0.5 x10^3/uL (1.0-4.8) Monocytes # (Auto) 0.5 x10^3/uL (0.0-1.1) Eosinophils # (Auto) 0.1 x10^3/uL (0.0-0.7) Basophils # (Auto) 0.0 x10^3/uL (0.0-0.2) Troponin I High Sensitivity 19 ng/L (4-75) Urine Collection Type Unknown Urine Color Yellow Urine Clarity Clear Urine pH 7.5 (<5.0-8.0) Urine Specific [place] 1.010 (1.000-1.030) Urine Protein 100 mg/dL (NEG-TRACE) Urine Glucose (UA) Negative mg/dL (NEG) Urine Ketones (Stick) Negative mg/dL (NEG) Urine Blood Trace (NEG) Urine Nitrite Negative (NEG) Urine Bilirubin Negative (NEG) Urine Urobilinogen Dipstick 0.2 mg/dL (0.2 mg/dL) Urine Leukocyte Esterase Negative (NEG) Urine RBC 0 /HPF (0-2) Urine WBC Occ /HPF (0-4) Urine Squamous Epithelial Cells Occ /LPF Urine Bacteria Few /HPF (0-FEW) Test 06/27/21 22:41 06/27/21 22:55 06/28/21 03:15 06/28/21 04:00 Glucose (Fingerstick) 36 mg/dL (70-99) 171 mg/dL (70-99) 135 mg/dL (70-99) White Blood Count 4.7 x10^3/uL (4.0-11.0) Red Blood Count 3.43 x10^6/uL (4.30-5.70) Hemoglobin 11.5 g/dL (13.0-17.5) Hematocrit 33.6 % (39.0-53.0) Mean Corpuscular Volume 98 fL (79-100) Mean Corpuscular Hemoglobin 34 pg (25-35) Mean Corpuscular Hemoglobin Concent 34 g/dL (31-37) Red Cell Distribution Width 14.0 % (11.5-14.5) Platelet Count 141 x10^3/uL (140-400) Neutrophils (%) (Auto) 71 % (31-73) Lymphocytes (%) (Auto) 18 % (24-48) Monocytes (%) (Auto) 10 % (0-9) Eosinophils (%) (Auto) 2 % (0-3) Basophils (%) (Auto) 0 % (0-3) Neutrophils # (Auto) 3.3 x10^3/uL (1.8-7.7) Lymphocytes # (Auto) 0.8 x10^3/uL (1.0-4.8) Monocytes # (Auto) 0.4 x10^3/uL (0.0-1.1) Eosinophils # (Auto) 0.1 x10^3/uL (0.0-0.7) Basophils # (Auto) 0.0 x10^3/uL (0.0-0.2) Sodium Level 136 mmol/L (136-145) Potassium Level 4.7 mmol/L (3.5-5.1) Chloride Level 102 mmol/L (98-107) Carbon Dioxide Level 26 mmol/L (21-32) Anion Gap 8 (6-14) Blood Urea Nitrogen 38 mg/dL (8-26) Creatinine 4.1 mg/dL (0.7-1.3) Estimated GFR (Cockcroft-Gault) 14.1 BUN/Creatinine Ratio 9 (6-20) Glucose Level 131 mg/dL (70-99) Calcium Level 7.4 mg/dL (8.5-10.1) Total Bilirubin 0.3 mg/dL (0.2-1.0) Aspartate Amino Transf (AST/SGOT) 22 U/L (15-37) Alanine Aminotransferase (ALT/SGPT) 24 U/L (16-63) Alkaline Phosphatase 105 U/L (46-116) Troponin I High Sensitivity 21 ng/L (4-75) Total Protein 6.4 g/dL (6.4-8.2) Albumin 2.8 g/dL (3.4-5.0) Albumin/Globulin Ratio 0.8 (1.0-1.7) Vitamin B12 Level 366 pg/mL (247-911) Thyroid Stimulating Hormone (TSH) 4.033 uIU/mL (0.358-3.74) Test 06/28/21 08:05 06/28/21 11:36 06/28/21 16:41 Glucose (Fingerstick) 55 mg/dL (70-99) 137 mg/dL (70-99) 216 mg/dL (70-99) Laboratory Tests Test 06/27/21 22:41 06/27/21 22:55 06/28/21 03:15 06/28/21 04:00 Glucose (Fingerstick) 36 mg/dL (70-99) 171 mg/dL (70-99) 135 mg/dL (70-99) White Blood Count 4.7 x10^3/uL (4.0-11.0) Red Blood Count 3.43 x10^6/uL (4.30-5.70) Hemoglobin 11.5 g/dL (13.0-17.5) Hematocrit 33.6 % (39.0-53.0) Mean Corpuscular Volume 98 fL (79-100) Mean Corpuscular Hemoglobin 34 pg (25-35) Mean Corpuscular Hemoglobin Concent 34 g/dL (31-37) Red Cell Distribution Width 14.0 % (11.5-14.5) Platelet Count 141 x10^3/uL (140-400) Neutrophils (%) (Auto) 71 % (31-73) Lymphocytes (%) (Auto) 18 % (24-48) Monocytes (%) (Auto) 10 % (0-9) Eosinophils (%) (Auto) 2 % (0-3) Basophils (%) (Auto) 0 % (0-3) Neutrophils # (Auto) 3.3 x10^3/uL (1.8-7.7) Lymphocytes # (Auto) 0.8 x10^3/uL (1.0-4.8) Monocytes # (Auto) 0.4 x10^3/uL (0.0-1.1) Eosinophils # (Auto) 0.1 x10^3/uL (0.0-0.7) Basophils # (Auto) 0.0 x10^3/uL (0.0-0.2) Sodium Level 136 mmol/L (136-145) Potassium Level 4.7 mmol/L (3.5-5.1) Chloride Level 102 mmol/L (98-107) Carbon Dioxide Level 26 mmol/L (21-32) Anion Gap 8 (6-14) Blood Urea Nitrogen 38 mg/dL (8-26) Creatinine 4.1 mg/dL (0.7-1.3) Estimated GFR (Cockcroft-Gault) 14.1 BUN/Creatinine Ratio 9 (6-20) Glucose Level 131 mg/dL (70-99) Calcium Level 7.4 mg/dL (8.5-10.1) Total Bilirubin 0.3 mg/dL (0.2-1.0) Aspartate Amino Transf (AST/SGOT) 22 U/L (15-37) Alanine Aminotransferase (ALT/SGPT) 24 U/L (16-63) Alkaline Phosphatase 105 U/L (46-116) Troponin I High Sensitivity 21 ng/L (4-75) Total Protein 6.4 g/dL (6.4-8.2) Albumin 2.8 g/dL (3.4-5.0) Albumin/Globulin Ratio 0.8 (1.0-1.7) Vitamin B12 Level 366 pg/mL (247-911) Thyroid Stimulating Hormone (TSH) 4.033 uIU/mL (0.358-3.74) Test 06/28/21 08:05 06/28/21 11:36 06/28/21 16:41 Glucose (Fingerstick) 55 mg/dL (70-99) 137 mg/dL (70-99) 216 mg/dL (70-99) Medications Current Medications Dextrose (Dextrose 50%-Water Syringe) 12.5 gm PRN Q15MIN PRN IV SEE COMMENTS Last administered on 06/27/21at 22:57; Start 06/27/21 at 19:15; Stop 06/28/21 at 17:41; Status DC Ceftriaxone Sodium (Rocephin) 1 gm 1X ONCE IVP Last administered on 06/27/21at 21:22; Start 06/27/21 at 19:15; Stop 06/27/21 at 19:17; Status DC Azithromycin 250 ml @ 250 mls/hr 1X ONCE IV Last administered on 06/27/21at 21:22; Start 06/27/21 at 19:15; Stop 06/27/21 at 20:14; Status DC Potassium Chloride/Dextrose/ Sod Cl 1,000 ml @ 80 mls/hr [id number] IV ; Start 06/27/21 at 19:15; Stop 06/27/21 at 20:02; Status DC Dextrose/Sodium Chloride 1,000 ml @ 75 mls/hr 1X ONCE IV Last administered on 06/27/21at 23:17; Start 06/27/21 at 20:15; Stop 06/28/21 at 09:34; Status DC Ondansetron HCl (Zofran) 4 mg PRN Q4HRS PRN IVP NAUSEA/VOMITING; Start 06/27/21 at 22:15 Acetaminophen (Tylenol) 650 mg PRN Q6HRS PRN PO MILD PAIN / TEMP > 100.3'F; Start 06/27/21 at 22:15 Nitroglycerin (Nitrostat) 0.4 mg PRN Q5MIN PRN SL CHEST PAIN; Start 06/27/21 at 22:15 Tramadol HCl (Ultram) 50 mg PRN Q6HRS PRN PO PAIN MOD/SEV Last administered on 06/27/21at 23:22; Start 06/27/21 at 22:15 Fentanyl Citrate (Fentanyl 2ml Vial) 25 mcg PRN Q3HRS PRN IVP SEVERE PAIN 7-10 Last administered on 06/28/21at 03:22; Start 06/27/21 at 22:15 Heparin Sodium (Porcine) (Heparin Sodium) 5,000 unit Q8HRS SQ Last administered on 06/28/21at 15:22; Start 06/28/21 at 06:00 Hydralazine HCl (Apresoline Inj) 10 mg PRN Q4HRS PRN IVP ELEVATED BP, SEE COMMENTS Last administered on 06/28/21at 16:12; Start 06/27/21 at 22:15 Cyclobenzaprine HCl (Flexeril) 10 mg PRN TID PRN PO MUSCLE SPASMS Last administered on 06/28/21at 00:41; Start 06/28/21 at 00:30 Fentanyl Citrate (Fentanyl 2ml Vial) 50 mcg 1X ONCE IM Last administered on 06/28/21at 00:41; Start 06/28/21 at 00:30; Stop 06/28/21 at 00:31; Status DC Dextrose 500 ml @ 100 mls/hr 1X ONCE IV Last administered on 06/28/21at 00: 30; Start 06/28/21 at 00:30; Stop 06/28/21 at 05:29; Status DC Olanzapine (ZyPREXA ZYDIS) 5 mg PRN BID PRN PO ANXIETY / AGITATION Last administered on 06/28/21at 00:41; Start 06/28/21 at 00:30 Insulin Human Lispro (HumaLOG) 0-7 UNITS TIDWMEALS SQ Last administered on 06/28/21at 18:22; Start 06/28/21 at 18:00 Dextrose (Dextrose 50%-Water Syringe) 12.5 gm PRN Q15MIN PRN IV SEE COMMENTS; Start 06/28/21 at 17:45; Stop 06/28/21 at 17:41; Status DC Insulin Human Lispro (HumaLOG) 0-7 UNITS TIDWMEALS SQ ; Start 06/29/21 at 08:00 Dextrose (Dextrose 50%-Water Syringe) 12.5 gm PRN Q15MIN PRN IV SEE COMMENTS; Start 06/28/21 at 17:45 Active Scripts Active Reported Lidocaine-Prilocaine Cream (Lidocaine/Prilocaine) 30 Gm Cream..g. 1 Tatiana TP UD small amount to affected area for dialysis fistula pain management Tramadol Hcl 50 Mg Tablet 50 Mg PO BID PRN Zolpidem Tartrate 5 Mg Tablet 5 Mg PO PRN QHS PRN Metoprolol Tartrate 25 Mg Tablet 1 Tab PO BID Glipizide 10 Mg Tablet 10 Mg PO DAILY Calcium Acetate 667 Mg Tablet 2 Tab PO TID 30 Days Vitals/I & O Vital Sign - Last 24 Hours 06/27/21 06/27/21 06/27/21 06/27/21 21:20 22:51 22:56 22:57 Pulse 60 69 67 B/P (MAP) 223/93 (136) 226/94 (138) 223/98 Pulse Ox 97 100 O2 Delivery Room Air Room Air Room Air 06/27/21 06/28/21 06/28/21 06/28/21 23:00 01:18 03:22 03:29 Temp 97.7 98.2 97.7 98.2 Pulse 74 84 63 Resp 20 20 B/P (MAP) 133/116 (122) 208/83 187/75 (112) Pulse Ox 96 96 O2 Delivery Room Air Room Air Room Air 06/28/21 06/28/21 06/28/21 06/28/21 07:00 08:20 11:00 15:00 Temp 98.2 98.1 97.1 98.2 98.1 97.1 Pulse 65 71 72 Resp 18 18 18 B/P (MAP) 172/74 (106) 154/68 (96) 191/83 (119) Pulse Ox 97 97 96 O2 Delivery Room Air Room Air Room Air Room Air 06/28/21 06/28/21 16:12 19:00 Temp 97.9 97.9 Pulse 72 85 Resp 20 B/P (MAP) 191/83 176/77 (110) Pulse Ox 99 O2 Delivery Room Air Intake and Output 06/27/21 06/27/21 06/28/21 15:00 23:00 07:00 Output Total 200 ml Balance -200 ml Justicifation of Admission Dx: Justifications for Admission: Justification of Admission Dx: Yes Comments: Severe hypoglycemia LUIZA NEGRO MD Jun 28, 2021 20:07
[2021-06-28 23:03] VITALS: BP 183/81
[2021-06-29 03:57] VITALS: BP 189/79
[2021-06-29] MEDS: HEPARIN for SUB-Q USE 5,000 UNIT/ML VIAL. SQ SCH ×3 (05:37→20:49)
[2021-06-29 07:00] VITALS: BP 172/72
[2021-06-29] MEDS: INSULIN LISPRO 300 UNITS/3 ML VIAL. SQ SCH (07:52)
[2021-06-29] MEDS ORDERED: INSULIN LISPRO 300 UNITS/3 ML VIAL. SQ SCH (08:00)
[2021-06-29] MEDS ORDERED: IV NORMAL SALINE 1000ML BAG 1,000 ML IV PRN ×2 (08:45)
[2021-06-29] MEDS ORDERED: DIALYSIS PATIENT. MC PRN ×2 (08:45)
[2021-06-29] MEDS ORDERED: LIDOCAINE 1% PF 2 ML VIAL. INJ PRN (08:45)
[2021-06-29] MEDS: hydrALAZINE 20 MG/ML VIAL. IVP PRN (08:48)
[2021-06-29] MEDS ORDERED: traMADol 50 MG TABLET PO PRN (11:15)
[2021-06-29] MEDS ORDERED: ZOLPIDEM 5 MG TABLET. PO PRN (11:15)
--- NOTE | 2021-06-29 11:45 | PDOC ---
Dialysis Progress Note Date of Service: DATE: 06/29/21 TIME: 11:43 Dialysis Note Dialysis Note Seen on Hemodialysis, tolerating treatment Well Vitals on Hemodialysis: 136 / 67 89 afeb General Appearance: Asleep on HD Neck: No JVD or JVP Chest: CTA Rush Heart: S1 S2 Abdomen - Soft NTND Extremities - No Edema ESRD: Dialysis as below F 180 NR 3.0 Hrs 3 K 2.5 Ca 140 Na 35 HC03 Qb 350 + Qd 500+ Heparin 0 Units Uf 1 Kgs or to dry weight as tolerated May give 25-50 gms of 25% Albumin if needed to maintain Hemodynamic stability Treatment plan reviewed and discussed with residential property manager Vitals Vital Signs Vital Signs Date Time Temp Pulse Resp B/P (MAP) Pulse Ox O2 Delivery O2 Flow Rate FiO2 06/29/21 08:48 64 172/72 06/29/21 08:00 Room Air 06/29/21 07:00 98.4 16 96 98.4 Labs Last Labs Laboratory Tests Test 06/27/21 16:57 06/27/21 18:05 06/27/21 18:30 06/27/21 18:45 Glucose (Fingerstick) 81 mg/dL (70-99) Sodium Level 135 mmol/L (136-145) Potassium Level 5.1 mmol/L (3.5-5.1) Chloride Level 101 mmol/L (98-107) Carbon Dioxide Level 28 mmol/L (21-32) Anion Gap 6 (6-14) Blood Urea Nitrogen 34 mg/dL (8-26) Creatinine 3.9 mg/dL (0.7-1.3) Estimated GFR (Cockcroft-Gault) 14.9 BUN/Creatinine Ratio 9 (6-20) Glucose Level 87 mg/dL (70-99) Calcium Level 7.8 mg/dL (8.5-10.1) Total Bilirubin 0.3 mg/dL (0.2-1.0) Aspartate Amino Transf (AST/SGOT) 26 U/L (15-37) Alanine Aminotransferase (ALT/SGPT) 31 U/L (16-63) Alkaline Phosphatase 138 U/L (46-116) Total Protein 7.4 g/dL (6.4-8.2) Albumin 3.2 g/dL (3.4-5.0) Albumin/Globulin Ratio 0.8 (1.0-1.7) SARS-CoV-2 RNA (MP) Negative (Negative) SARS-CoV-2 Antigen (Rapid) Negative (NEGATIVE) White Blood Count 6.0 x10^3/uL (4.0-11.0) Red Blood Count 3.48 x10^6/uL (4.30-5.70) Hemoglobin 11.6 g/dL (13.0-17.5) Hematocrit 34.1 % (39.0-53.0) Mean Corpuscular Volume 98 fL (79-100) Mean Corpuscular Hemoglobin 33 pg (25-35) Mean Corpuscular Hemoglobin Concent 34 g/dL (31-37) Red Cell Distribution Width 14.0 % (11.5-14.5) Platelet Count 140 x10^3/uL (140-400) Neutrophils (%) (Auto) 82 % (31-73) Lymphocytes (%) (Auto) 8 % (24-48) Monocytes (%) (Auto) 8 % (0-9) Eosinophils (%) (Auto) 1 % (0-3) Basophils (%) (Auto) 0 % (0-3) Neutrophils # (Auto) 4.9 x10^3/uL (1.8-7.7) Lymphocytes # (Auto) 0.5 x10^3/uL (1.0-4.8) Monocytes # (Auto) 0.5 x10^3/uL (0.0-1.1) Eosinophils # (Auto) 0.1 x10^3/uL (0.0-0.7) Basophils # (Auto) 0.0 x10^3/uL (0.0-0.2) Troponin I High Sensitivity 19 ng/L (4-75) Urine Collection Type Unknown Urine Color Yellow Urine Clarity Clear Urine pH 7.5 (<5.0-8.0) Urine Specific [place] 1.010 (1.000-1.030) Urine Protein 100 mg/dL (NEG-TRACE) Urine Glucose (UA) Negative mg/dL (NEG) Urine Ketones (Stick) Negative mg/dL (NEG) Urine Blood Trace (NEG) Urine Nitrite Negative (NEG) Urine Bilirubin Negative (NEG) Urine Urobilinogen Dipstick 0.2 mg/dL (0.2 mg/dL) Urine Leukocyte Esterase Negative (NEG) Urine RBC 0 /HPF (0-2) Urine WBC Occ /HPF (0-4) Urine Squamous Epithelial Cells Occ /LPF Urine Bacteria Few /HPF (0-FEW) Test 06/27/21 22:41 06/27/21 22:55 06/28/21 03:15 06/28/21 04:00 Glucose (Fingerstick) 36 mg/dL (70-99) 171 mg/dL (70-99) 135 mg/dL (70-99) White Blood Count 4.7 x10^3/uL (4.0-11.0) Red Blood Count 3.43 x10^6/uL (4.30-5.70) Hemoglobin 11.5 g/dL (13.0-17.5) Hematocrit 33.6 % (39.0-53.0) Mean Corpuscular Volume 98 fL (79-100) Mean Corpuscular Hemoglobin 34 pg (25-35) Mean Corpuscular Hemoglobin Concent 34 g/dL (31-37) Red Cell Distribution Width 14.0 % (11.5-14.5) Platelet Count 141 x10^3/uL (140-400) Neutrophils (%) (Auto) 71 % (31-73) Lymphocytes (%) (Auto) 18 % (24-48) Monocytes (%) (Auto) 10 % (0-9) Eosinophils (%) (Auto) 2 % (0-3) Basophils (%) (Auto) 0 % (0-3) Neutrophils # (Auto) 3.3 x10^3/uL (1.8-7.7) Lymphocytes # (Auto) 0.8 x10^3/uL (1.0-4.8) Monocytes # (Auto) 0.4 x10^3/uL (0.0-1.1) Eosinophils # (Auto) 0.1 x10^3/uL (0.0-0.7) Basophils # (Auto) 0.0 x10^3/uL (0.0-0.2) Sodium Level 136 mmol/L (136-145) Potassium Level 4.7 mmol/L (3.5-5.1) Chloride Level 102 mmol/L (98-107) Carbon Dioxide Level 26 mmol/L (21-32) Anion Gap 8 (6-14) Blood Urea Nitrogen 38 mg/dL (8-26) Creatinine 4.1 mg/dL (0.7-1.3) Estimated GFR (Cockcroft-Gault) 14.1 BUN/Creatinine Ratio 9 (6-20) Glucose Level 131 mg/dL (70-99) Calcium Level 7.4 mg/dL (8.5-10.1) Total Bilirubin 0.3 mg/dL (0.2-1.0) Aspartate Amino Transf (AST/SGOT) 22 U/L (15-37) Alanine Aminotransferase (ALT/SGPT) 24 U/L (16-63) Alkaline Phosphatase 105 U/L (46-116) Troponin I High Sensitivity 21 ng/L (4-75) Total Protein 6.4 g/dL (6.4-8.2) Albumin 2.8 g/dL (3.4-5.0) Albumin/Globulin Ratio 0.8 (1.0-1.7) Vitamin B12 Level 366 pg/mL (247-911) Thyroid Stimulating Hormone (TSH) 4.033 uIU/mL (0.358-3.74) Test 06/28/21 08:05 06/28/21 11:36 06/28/21 16:41 06/28/21 20:39 Glucose (Fingerstick) 55 mg/dL (70-99) 137 mg/dL (70-99) 216 mg/dL (70-99) 60 mg/dL (70-99) Test 06/28/21 21:04 06/29/21 07:23 Glucose (Fingerstick) 68 mg/dL (70-99) 111 mg/dL (70-99) Laboratory Tests Test 06/28/21 16:41 06/28/21 20:39 06/28/21 21:04 06/29/21 07:23 Glucose (Fingerstick) 216 mg/dL (70-99) 60 mg/dL (70-99) 68 mg/dL (70-99) 111 mg/dL (70-99) Assessment Assessment Problems Medical Problems: (1) Hypertension Status: Acute (2) Hypoglycemia Status: Acute (3) Pneumonia Status: Acute Plan Plan of Care Problems Medical Problems: (1) Hypertension Status: Acute (2) Hypoglycemia Status: Acute (3) Pneumonia Status: Acute DWIGHT WALKER MD Jun 29, 2021 11:45
[2021-06-29 12:35] VITALS: BP 145/72
[2021-06-29] MEDS: METOPROLOL TART IMMED RELEASE 25 MG TABLET. PO SCH ×2 (12:36→20:46)
[2021-06-29] MEDS: CALCIUM ACETATE 667 MG CAPSULE PO SCH ×2 (12:36→16:48)
[2021-06-29 15:00] VITALS: BP 150/64
--- NOTE | 2021-06-29 15:53 | PDOC ---
PROGRESS NOTES Date of Service: DATE: 06/29/21 TIME: 15:52 Chief Complaint Chief Complaint Acute encephalopathy - metabolic due to hypoglycemia. No focal neurologic deficits. Most likely related to glipizide, awaiting for C-peptide and cortisol levels Hypoglycemia - patient and niece do not note h/o diabetes. WIll maintain D5 infusion, check glucose q4hrs HTN urgency - IV hydralazine ordered. Will need meds reconciled ESRD on HD - [facility], will consult nephrology for recommendations, needs a new pmo analyst Anemia- likely of chronic renal insufficiency Abnormal CXR - no cough or fever, likely atelectasis, has been treated with rocephin and azithromycin for presumptive pneumonia in ED FEN - Renal diet Follow recommendations from senior information security consultant PPX - heparin FULL CODE Dispo - inpatient History of Present Illness History of Present Illness Mr Obregon is an 81yo male with PMHx HTN, ESRD on HD who comes to ED via EMS from [facility] where he was found passed out in a car. EMS noted confusion, glucose of 37 which improved to 107 after D10 and oral glucose. Blood pressure notably was 228/90. Patient is seen accompanied by his niece who notes he just move here from [place] on 06/23/2021 and has established dialysis with [facility] and completed dialysis earlier in the day prior to coming to ED. He denies chest pain, abdominal pain, nausea, vomiting fevers, or shortness of breath. No recent sick contacts, no pets at his [facility] EKG sinus rate of [address] elevations or T WI QTc 444. Chest radiograph with bibasilar opacities likely atelectasis. Labs with WBC 6, Hb 11.6, platelets 140, NA 135, K5.1, BUN 34, CR 3.9, calcium 7.8, albumin 3.2 alkaline phosphatase 138 high-sensitivity troponin 19 UA with trace blood otherwise bland, rapid COVID-19 negative Historically he and his niece note he has not had a COVID-19 vaccine that they can remember. After D5 infusion patient became a little more alert but is extremely hard of hearing and has poor vision. Niece supplements most of the history Admitted for further care on d5 infusion after glucose of 81 noted. 06/28/2021 No acute events reported overnight, case discussed with nursing staff patient in no acute distress no complaints during my visit All concerns addressed to the best of my ability 06/29/2021 Still having hypoglycemia, patient seen in dialysis no new complaints or acute events reported overnight. All questions and concerns addressed to the best of my abilities Vitals Vitals Vital Signs Date Time Temp Pulse Resp B/P (MAP) Pulse Ox O2 Delivery O2 Flow Rate FiO2 06/29/21 15:00 98.4 63 16 150/64 (92) 96 Room Air 98.4 Physical Exam General: Alert, Cooperative, No acute distress Heart: Regular rate Abdomen: Normal bowel sounds, Soft, No tenderness Extremities: No clubbing, No cyanosis, No edema, Normal pulses, No tenderness/swelling Skin: No breakdown Labs LABS Laboratory Tests Test 06/28/21 16:41 06/28/21 20:39 06/28/21 21:04 06/29/21 07:23 Glucose (Fingerstick) 216 mg/dL (70-99) 60 mg/dL (70-99) 68 mg/dL (70-99) 111 mg/dL (70-99) Test 06/29/21 12:33 Glucose (Fingerstick) 118 mg/dL (70-99) Assessment and Plan Assessmemt and Plan Problems Medical Problems: (1) Hypertension Status: Acute (2) Hypoglycemia Status: Acute (3) Pneumonia Status: Acute Comment Review of Relevant I have reviewed the following items becky (where applicable) has been applied. Labs Laboratory Tests Test 06/27/21 16:57 06/27/21 18:05 06/27/21 18:30 06/27/21 18:45 Glucose (Fingerstick) 81 mg/dL (70-99) Sodium Level 135 mmol/L (136-145) Potassium Level 5.1 mmol/L (3.5-5.1) Chloride Level 101 mmol/L (98-107) Carbon Dioxide Level 28 mmol/L (21-32) Anion Gap 6 (6-14) Blood Urea Nitrogen 34 mg/dL (8-26) Creatinine 3.9 mg/dL (0.7-1.3) Estimated GFR (Cockcroft-Gault) 14.9 BUN/Creatinine Ratio 9 (6-20) Glucose Level 87 mg/dL (70-99) Calcium Level 7.8 mg/dL (8.5-10.1) Total Bilirubin 0.3 mg/dL (0.2-1.0) Aspartate Amino Transf (AST/SGOT) 26 U/L (15-37) Alanine Aminotransferase (ALT/SGPT) 31 U/L (16-63) Alkaline Phosphatase 138 U/L (46-116) Total Protein 7.4 g/dL (6.4-8.2) Albumin 3.2 g/dL (3.4-5.0) Albumin/Globulin Ratio 0.8 (1.0-1.7) SARS-CoV-2 RNA (MP) Negative (Negative) SARS-CoV-2 Antigen (Rapid) Negative (NEGATIVE) White Blood Count 6.0 x10^3/uL (4.0-11.0) Red Blood Count 3.48 x10^6/uL (4.30-5.70) Hemoglobin 11.6 g/dL (13.0-17.5) Hematocrit 34.1 % (39.0-53.0) Mean Corpuscular Volume 98 fL (79-100) Mean Corpuscular Hemoglobin 33 pg (25-35) Mean Corpuscular Hemoglobin Concent 34 g/dL (31-37) Red Cell Distribution Width 14.0 % (11.5-14.5) Platelet Count 140 x10^3/uL (140-400) Neutrophils (%) (Auto) 82 % (31-73) Lymphocytes (%) (Auto) 8 % (24-48) Monocytes (%) (Auto) 8 % (0-9) Eosinophils (%) (Auto) 1 % (0-3) Basophils (%) (Auto) 0 % (0-3) Neutrophils # (Auto) 4.9 x10^3/uL (1.8-7.7) Lymphocytes # (Auto) 0.5 x10^3/uL (1.0-4.8) Monocytes # (Auto) 0.5 x10^3/uL (0.0-1.1) Eosinophils # (Auto) 0.1 x10^3/uL (0.0-0.7) Basophils # (Auto) 0.0 x10^3/uL (0.0-0.2) Troponin I High Sensitivity 19 ng/L (4-75) Urine Collection Type Unknown Urine Color Yellow Urine Clarity Clear Urine pH 7.5 (<5.0-8.0) Urine Specific [address] 1.010 (1.000-1.030) Urine Protein 100 mg/dL (NEG-TRACE) Urine Glucose (UA) Negative mg/dL (NEG) Urine Ketones (Stick) Negative mg/dL (NEG) Urine Blood Trace (NEG) Urine Nitrite Negative (NEG) Urine Bilirubin Negative (NEG) Urine Urobilinogen Dipstick 0.2 mg/dL (0.2 mg/dL) Urine Leukocyte Esterase Negative (NEG) Urine RBC 0 /HPF (0-2) Urine WBC Occ /HPF (0-4) Urine Squamous Epithelial Cells Occ /LPF Urine Bacteria Few /HPF (0-FEW) Test 06/27/21 22:41 06/27/21 22:55 06/28/21 03:15 06/28/21 04:00 Glucose (Fingerstick) 36 mg/dL (70-99) 171 mg/dL (70-99) 135 mg/dL (70-99) White Blood Count 4.7 x10^3/uL (4.0-11.0) Red Blood Count 3.43 x10^6/uL (4.30-5.70) Hemoglobin 11.5 g/dL (13.0-17.5) Hematocrit 33.6 % (39.0-53.0) Mean Corpuscular Volume 98 fL (79-100) Mean Corpuscular Hemoglobin 34 pg (25-35) Mean Corpuscular Hemoglobin Concent 34 g/dL (31-37) Red Cell Distribution Width 14.0 % (11.5-14.5) Platelet Count 141 x10^3/uL (140-400) Neutrophils (%) (Auto) 71 % (31-73) Lymphocytes (%) (Auto) 18 % (24-48) Monocytes (%) (Auto) 10 % (0-9) Eosinophils (%) (Auto) 2 % (0-3) Basophils (%) (Auto) 0 % (0-3) Neutrophils # (Auto) 3.3 x10^3/uL (1.8-7.7) Lymphocytes # (Auto) 0.8 x10^3/uL (1.0-4.8) Monocytes # (Auto) 0.4 x10^3/uL (0.0-1.1) Eosinophils # (Auto) 0.1 x10^3/uL (0.0-0.7) Basophils # (Auto) 0.0 x10^3/uL (0.0-0.2) Sodium Level 136 mmol/L (136-145) Potassium Level 4.7 mmol/L (3.5-5.1) Chloride Level 102 mmol/L (98-107) Carbon Dioxide Level 26 mmol/L (21-32) Anion Gap 8 (6-14) Blood Urea Nitrogen 38 mg/dL (8-26) Creatinine 4.1 mg/dL (0.7-1.3) Estimated GFR (Cockcroft-Gault) 14.1 BUN/Creatinine Ratio 9 (6-20) Glucose Level 131 mg/dL (70-99) Calcium Level 7.4 mg/dL (8.5-10.1) Total Bilirubin 0.3 mg/dL (0.2-1.0) Aspartate Amino Transf (AST/SGOT) 22 U/L (15-37) Alanine Aminotransferase (ALT/SGPT) 24 U/L (16-63) Alkaline Phosphatase 105 U/L (46-116) Troponin I High Sensitivity 21 ng/L (4-75) Total Protein 6.4 g/dL (6.4-8.2) Albumin 2.8 g/dL (3.4-5.0) Albumin/Globulin Ratio 0.8 (1.0-1.7) Vitamin B12 Level 366 pg/mL (247-911) Thyroid Stimulating Hormone (TSH) 4.033 uIU/mL (0.358-3.74) Test 06/28/21 08:05 06/28/21 11:36 06/28/21 16:41 06/28/21 20:39 Glucose (Fingerstick) 55 mg/dL (70-99) 137 mg/dL (70-99) 216 mg/dL (70-99) 60 mg/dL (70-99) Test 06/28/21 21:04 06/29/21 07:23 06/29/21 12:33 Glucose (Fingerstick) 68 mg/dL (70-99) 111 mg/dL (70-99) 118 mg/dL (70-99) Laboratory Tests Test 06/28/21 16:41 06/28/21 20:39 06/28/21 21:04 06/29/21 07:23 Glucose (Fingerstick) 216 mg/dL (70-99) 60 mg/dL (70-99) 68 mg/dL (70-99) 111 mg/dL (70-99) Test 06/29/21 12:33 Glucose (Fingerstick) 118 mg/dL (70-99) Medications Current Medications Dextrose (Dextrose 50%-Water Syringe) 12.5 gm PRN Q15MIN PRN IV SEE COMMENTS Last administered on 06/27/21at 22:57; Start 06/27/21 at 19:15; Stop 06/28/21 at 17:41; Status DC Ceftriaxone Sodium (Rocephin) 1 gm 1X ONCE IVP Last administered on 06/27/21at 21:22; Start 06/27/21 at 19:15; Stop 06/27/21 at 19:17; Status DC Azithromycin 250 ml @ 250 mls/hr 1X ONCE IV Last administered on 06/27/21at 21:22; Start 06/27/21 at 19:15; Stop 06/27/21 at 20:14; Status DC Potassium Chloride/Dextrose/ Sod Cl 1,000 ml @ 80 mls/hr [id number] IV ; Start 06/27/21 at 19:15; Stop 06/27/21 at 20:02; Status DC Dextrose/Sodium Chloride 1,000 ml @ 75 mls/hr 1X ONCE IV Last administered on 06/27/21at 23:17; Start 06/27/21 at 20:15; Stop 06/28/21 at 09:34; Status DC Ondansetron HCl (Zofran) 4 mg PRN Q4HRS PRN IVP NAUSEA/VOMITING; Start 06/27/21 at 22:15 Acetaminophen (Tylenol) 650 mg PRN Q6HRS PRN PO MILD PAIN / TEMP > 100.3'F; Start 06/27/21 at 22:15 Nitroglycerin (Nitrostat) 0.4 mg PRN Q5MIN PRN SL CHEST PAIN; Start 06/27/21 at 22:15 Tramadol HCl (Ultram) 50 mg PRN Q6HRS PRN PO PAIN MOD/SEV Last administered on 06/27/21at 23:22; Start 06/27/21 at 22:15 Fentanyl Citrate (Fentanyl 2ml Vial) 25 mcg PRN Q3HRS PRN IVP SEVERE PAIN 7-10 Last administered on 06/28/21at 03:22; Start 06/27/21 at 22:15 Heparin Sodium (Porcine) (Heparin Sodium) 5,000 unit Q8HRS SQ Last administered on 06/29/21at 14:50; Start 06/28/21 at 06:00 Hydralazine HCl (Apresoline Inj) 10 mg PRN Q4HRS PRN IVP ELEVATED BP, SEE COMMENTS Last administered on 06/29/21at 08:48; Start 06/27/21 at 22:15 Cyclobenzaprine HCl (Flexeril) 10 mg PRN TID PRN PO MUSCLE SPASMS Last administered on 06/28/21at 00:41; Start 06/28/21 at 00:30 Fentanyl Citrate (Fentanyl 2ml Vial) 50 mcg 1X ONCE IM Last administered on 06/28/21at 00:41; Start 06/28/21 at 00:30; Stop 06/28/21 at 00:31; Status DC Dextrose 500 ml @ 100 mls/hr 1X ONCE IV Last administered on 06/28/21at 00:30; Start 06/28/21 at 00:30; Stop 06/28/21 at 05:29; Status DC Olanzapine (ZyPREXA ZYDIS) 5 mg PRN BID PRN PO ANXIETY / AGITATION Last administered on 06/28/21at 00:41; Start 06/28/21 at 00:30 Insulin Human Lispro (HumaLOG) 0-7 UNITS TIDWMEALS SQ Last administered on 06/28/21at 18:22; Start 06/28/21 at 18:00; Stop 06/29/21 at 09:12; Status DC Dextrose (Dextrose 50%-Water Syringe) 12.5 gm PRN Q15MIN PRN IV SEE COMMENTS; Start 06/28/21 at 17:45; Stop 06/28/21 at 17:41; Status DC Insulin Human Lispro (HumaLOG) 0-7 UNITS TIDWMEALS SQ ; Start 06/29/21 at 08:00; Stop 06/29/21 at 07:54; Status DC Dextrose (Dextrose 50%-Water Syringe) 12.5 gm PRN Q15MIN PRN IV SEE COMMENTS; Start 06/28/21 at 17:45 Sodium Chloride 1,000 ml @ 1,000 mls/hr Q1H PRN IV hypotension; Start 06/29/21 at 08:45; Stop 06/29/21 at 14:44; Status DC Sodium Chloride 1,000 ml @ 400 mls/hr Q2H30M PRN IV PATENCY; Start 06/29/21 at 08:45; Stop 06/29/21 at 20:44 Lidocaine HCl (Xylocaine-Mpf 1% 2ml Vial) 2 ml 1X PRN PRN INJ FOR DIALYSIS; Start 06/29/21 at 08:45; Stop 06/30/21 at 08:44 Info (PHARMACY MONITORING -- do not chart) 1 each PRN DAILY PRN MC SEE COMMENTS; Start 06/29/21 at 08:45; Status UNV Info (PHARMACY MONITORING -- do not chart) 1 each PRN DAILY PRN MC SEE COMMENTS; Start 06/29/21 at 08:45 Metoprolol Tartrate (Lopressor) 25 mg BID PO Last administered on 06/29/21at 12:36; Start 06/29/21 at 12:00 Tramadol HCl (Ultram) 50 mg BID PRN PO PAIN; Start 06/29/21 at 11:15; Status UNV Zolpidem Tartrate (Ambien) 5 mg PRN QHS PRN PO INSOMNIA; Start 06/29/21 at 11:15 Calcium Acetate (Phoslo) 1,334 mg TIDWMEALS PO Last administered on 06/29/21at 12:36; Start 06/29/21 at 12:00 Active Scripts Active Reported Lidocaine-Prilocaine Cream (Lidocaine/Prilocaine) 30 Gm Cream..g. 1 Tatiana TP UD small amount to affected area for dialysis fistula pain management Tramadol Hcl 50 Mg Tablet 50 Mg PO BID PRN Zolpidem Tartrate 5 Mg Tablet 5 Mg PO PRN QHS PRN Metoprolol Tartrate 25 Mg Tablet 1 Tab PO BID Glipizide 10 Mg Tablet 10 Mg PO DAILY Calcium Acetate 667 Mg Tablet 2 Tab PO TID 30 Days Vitals/I & O Vital Sign - Last 24 Hours 06/28/21 06/28/21 06/28/21 06/28/21 16:12 19:00 20:20 22:00 Temp 97.9 97.9 Pulse 72 85 85 Resp 20 B/P (MAP) 191/83 176/77 (110) 176/77 Pulse Ox 99 O2 Delivery Room Air Room Air 06/28/21 06/29/21 06/29/21 06/29/21 23:03 03:57 07:00 08:00 Temp 98.1 98.1 98.4 98.1 98.1 98.4 Pulse 83 90 64 Resp 20 20 16 B/P (MAP) 183/81 (115) 189/79 (115) 172/72 (105) Pulse Ox 96 95 96 O2 Delivery Room Air Room Air Room Air Room Air 06/29/21 06/29/21 06/29/21 06/29/21 08:48 12:35 12:36 15:00 Temp 98.8 98.4 98.8 98.4 Pulse 64 90 90 63 Resp 16 16 B/P (MAP) 172/72 145/72 (96) 145/72 150/64 (92) Pulse Ox 97 96 O2 Delivery Room Air Room Air Intake and Output 06/28/21 06/28/21 06/29/21 15:00 23:00 07:00 Output Total 375 ml 220 ml 325 ml Balance -375 ml -220 ml -325 ml Justicifation of Admission Dx: Justifications for Admission: Justification of Admission Dx: Yes LUIZA NEGRO MD Jun 29, 2021 15:53
[2021-06-29 19:00] VITALS: BP 150/59
[2021-06-29 23:04] VITALS: BP 160/65
[2021-06-30 03:08] VITALS: BP 149/92
[2021-06-30] MEDS: HEPARIN for SUB-Q USE 5,000 UNIT/ML VIAL. SQ SCH (06:27)
[2021-06-30 07:00] VITALS: BP 168/66
[2021-06-30] MEDS: CALCIUM ACETATE 667 MG CAPSULE PO SCH (08:48)
[2021-06-30] MEDS: METOPROLOL TART IMMED RELEASE 25 MG TABLET. PO SCH (08:48)
[2021-06-30] MEDS ORDERED: INSU100I13 SQ (09:38)
[2021-06-30] MEDS ORDERED: BLOO-1396 MC (09:41)
[2021-06-30 11:00] VITALS: BP 157/66
--- NOTE | 2021-06-30 11:45 | NUR ---
Discharge Note: [facility] Discharge instructions and discharge home medications reviewed with Patient and Priyanka (niece) and a copy given. All questions have been answered and understanding verbalized. The following instructions and handouts were given: f/u with PCP within three weeks. Discontinued lines and drains: Peripheral IV intact. Patient discharged to Assisted Living with Family Member via Wheelchair
== END 2021-06-30 11:45 | disposition home or self-care (01) | DRG 637 ==
LOC: ER 16:45 → 5 SOUTH 19:19
PROVIDERS: ADMIT Internal Medicine; ATTEND Internal Medicine
PROC: 5A1D70Z Performance of Urinary Filtration, Intermittent, Less than 6 Hours Per Day (ICD-10-PCS; principal; 2021-06-29)
DX: E11.649 Type 2 diabetes mellitus with hypoglycemia without coma (principal); G93.41 Metabolic encephalopathy; J18.9 Pneumonia, unspecified organism; I12.0 Hypertensive chronic kidney disease with stage 5 chronic kidney disease or end stage renal disease; J98.11 Atelectasis; I16.0 Hypertensive urgency; N18.6 End stage renal disease; D64.9 Anemia, unspecified; E11.22 Type 2 diabetes mellitus with diabetic chronic kidney disease; H54.7 Unspecified visual loss; H91.90 Unspecified hearing loss, unspecified ear; Z20.822 Contact with and (suspected) exposure to COVID-19; Z82.49 Family history of ischemic heart disease and other diseases of the circulatory system; Z99.2 Dependence on renal dialysis; E21.3 Hyperparathyroidism, unspecified
CPT/HCPCS: 36415; 71045; 80053; 81001; 82533; 82607; 82962; 84443; 84484; 84681; 85025; 87426; 93005; 96365; 96375; J0360; J0456; J0696; J1644; J1815; J3010; J3480; J3490; J7042; U0003; U0005; 99285-25; G0378